=== PATIENT | male | born 1995 | race American Indian/Alaskan Native ===

== ENCOUNTER 2017-03-03 10:17 | Emergency (ER) | payer SELFPAY ==
--- NOTE | 2017-03-03 13:12 | Emergency Department Report ---
ED General Adult HPI - General Chief complaint: Sore Throat Stated complaint: FLU LIKE SYMPTOMS Time Seen by Provider: 03/03/17 12:57 Source: patient Mode of arrival: Ambulatory Limitations: No Limitations - History of Present Illness Initial comments: Patient here reports that he has sore throats complaining of sore throat 2 days. Reports chills. Denies any headache, coughing, shortness of breath. Denies any neck pain or stiffness. Denies any nausea vomiting or abdominal pain. He is also complaining of testicular pain that started going on for 2 months. Denies any injury to area. Denies any swelling he said it hurts when he touches testicles. Denies any penile discharge. Denies any concern for STD as he said he hasn't had sex for a while. Pain is 10 out of 10 to his throat and testicle. He reports taking [id number] pain medication without any relief. Describes the pain as aching. MD Complaint: sore throat and testicular pain -: days(s) ( sore throat), month(s) (testicular pain) Location: mouth (Throat), genitals Severity scale (0 -10): 10 Quality: aching Consistency: intermittent Improves with: none Worsens with: eating, movement Associated Symptoms: fever/chills. denies: confusion, chest pain, cough, diaphoresis, headaches, loss of appetite, malaise, nausea/vomiting, rash, seizure, shortness of breath, syncope, weakness Treatments Prior to Arrival: NSAID - Related Data Previous Rx's Medication Instructions Recorded Last Taken Type Ibuprofen [Motrin] 800 mg PO Q8HR PRN #15 tablet 03/03/17 Unknown Rx Allergies Allergy/AdvReac Type Severity Reaction Status Date / Time No Known Allergies Allergy Unverified 03/03/17 10:21 ED Review of Systems ROS: Stated complaint: FLU LIKE SYMPTOMS Other details as noted in HPI Comment: All other systems reviewed and negative Constitutional: chills. denies: malaise, weakness Eyes: denies: eye pain, eye discharge ENT: throat pain. denies: ear pain, congestion Respiratory: denies: cough, orthopnea, shortness of breath, SOB with exertion, SOB at rest, stridor, wheezing Cardiovascular: denies: chest pain, palpitations, edema, syncope Gastrointestinal: denies: abdominal pain, nausea, vomiting Genitourinary: testicular pain. denies: testicular mass Skin: denies: rash Neurological: denies: headache, weakness, numbness, abnormal gait, vertigo ED Past Medical Hx - Past Medical History Previous Medical History?: No - Surgical History Past Surgical History?: Yes Additional Surgical History: HAND SURGERY - Social History Smoking Status: Current Every Day Smoker Substance Use Type: None - Medications Home Medications: Home Medications Medication Instructions Recorded Confirmed Last Taken Type Ibuprofen [Motrin] 800 mg PO Q8HR PRN #15 tablet 03/03/17 Unknown Rx ED Physical Exam - General Limitations: No Limitations ED Course Vital Signs 03/03/17 03/03/17 10:22 14:35 Temperature 100.9 F H Pulse Rate 102 H Respiratory 18 18 Rate Blood Pressure 121/87 Vital Signs 03/03/17 03/03/17 03/03/17 10:22 14:35 15:21 Temperature 100.9 F H 99.9 F H Pulse Rate 102 H Respiratory 18 18 16 Rate Blood Pressure 121/87 Blood Pressure 111/66 [Left] O2 Sat by Pulse 99 Oximetry Vital Signs 03/03/17 03/03/17 03/03/17 10:22 14:35 15:21 Temperature 100.9 F H 99.9 F H Pulse Rate 102 H Respiratory 18 18 16 Rate Blood Pressure 121/87 Blood Pressure 111/66 [Left] O2 Sat by Pulse 99 Oximetry 03/03/17 15:29 Temperature Pulse Rate 88 Respiratory Rate Blood Pressure Blood Pressure [Left] O2 Sat by Pulse Oximetry - Reevaluation(s) Reevaluation #1: 03/03/17 15:15 Patient given Bicillin long acting 1.2 mu, Motrin 800 mg of sore throat and testicular pain. Deltasone for enlarged tonsils and sore throat. ED Medical Decision Making - Lab Data Lab Results 03/03/17 Range/Units 13:10 Urine Color Yellow (Yellow) Urine Turbidity Clear (Clear) Urine pH 7.0 (5.0-7.0) Ur Specific [place] 1.025 (1.003-1.030) Urine Protein <15 mg/dl (Negative) mg/dL Urine Glucose (UA) Neg (Negative) mg/dL Urine Ketones 80 (Negative) mg/dL Urine Blood Neg (Negative) Urine Nitrite Neg (Negative) Urine Bilirubin Neg (Negative) Urine Urobilinogen 4.0 (<2.0) mg/dL Ur Leukocyte Esterase Neg (Negative) Urine WBC (Auto) < 1.0 (0.0-6.0) /HPF Urine RBC (Auto) < 1.0 (0.0-6.0) /HPF Urine Mucus Few /HPF - Radiology Data Radiology results: report reviewed Ultrasound of testicles reveals normal testicles. - Medical Decision Making ED course: Based on [facility] criteria patient with strep throat. He has exudative pharynx and tonsils, tonsillitis, enlarged tonsils, fever with chills and enlarged cervical lymph nodes. Discussed with patient that he has strep throat and will be treated in emergency room with Bicillin times one dose. I told them that this is a long acting penicillin and referred up to 10-14 days.Patient given Bicillin long acting 1.2 mu, Motrin 800 mg of sore throat and testicular pain. Deltasone for enlarged tonsils and sore throat. I also explained to patient that his ultrasound of his testicles were normal. I discussed with patient that his urine is normal except that he has ketones in his urine which is a sign of dehydration. Patient was orally challenged in emergency room and he drank 4 cups of cranberry juice without any difficulties. Patient was understanding of discharge diagnosis and treatment plan. Discharged home with prescription for Motrin and to follow-up with [facility] in 5 days. Critical care attestation.: If time is entered above; I have spent that time in minutes in the direct care of this critically ill patient, excluding procedure time. ED Disposition Clinical Impression: Enlarged tonsils, Exudative pharyngitis, Testicular pain, Dehydration, Fever in adult Disposition: DISCHARGED TO HOME OR SELFCARE Is pt being admited?: No Does the pt Need Aspirin: No Condition: Stable Instructions: Testicle Pain (ED), Dehydration (ED), Pharyngitis (ED), Strep Throat (ED), Fever in Adults (ED) Additional Instructions: Please increase her fluid intake to 23 L of fluid per day. Take Motrin as prescribed for sore throats. ultrasound of his testicles reveal normal findings. [facility] for [facility] care visit status post strep throat and testicular pain. Gargle with Warm salt water and this will help sore throat Prescriptions: Ibuprofen [Motrin] 800 mg PO Q8HR PRN #15 tablet PRN Reason: Sore Throat Referrals: PRIMARY CARE, [Primary Care Provider] - 3-5 Days Forms: Work/School Release Form(ED), Accompanied Note
[2017-03-03] MEDS ORDERED: DELTASONE PO ONE (13:18)
[2017-03-03] MEDS ORDERED: MOTRIN PO ONE (13:18)
[2017-03-03] MEDS ORDERED: BICILLIN L-A IM ONE (13:18)
[2017-03-03 14:43] LABS: Bilirubin,Urine NEG (Negative); Blood,Urine NEG (Negative); Ketones,Urine 80 mg/dL (Negative); Leukocyte Esterase,Urine NEG (Negative); Mucus,Urine FEW /HPF; Nitrite,Urine NEG (Negative); Protein,Urine <15 mg/dL mg/dL (Negative); RBC,Urine < 1.0 /HPF (0.0-6.0); WBC,Urine < 1.0 /HPF (0.0-6.0)
--- NOTE | 2017-03-03 15:09 | Ultrasound Report ---
FINAL REPORT PROCEDURE: US TESTICULAR DOPPLER COMP TECHNIQUE: Real-time cantrell-scale and color flow Doppler sonography in multiple planes of the scrotum, testicles, and epididymes was performed. Velocity spectral waveform analysis Doppler imaging of the arterial inflow and venous outflow of the testicles was performed with image documentation. CPT 60187 and 52009 HISTORY: PAIN IN TESTICLES FOR 2 MONTHS COMPARISON: No prior studies are available for comparison. FINDINGS: RIGHT TESTICLE: Size: 3.5 cm . Appearance: Normal size and echotexture . Arterial blood flow: Normal spectral waveforms, flow velocities and color flow images.. Venous blood flow: Normal spectral waveforms and color flow images. Right epididymis: Normal size and echotexture . Hydrocele: None . LEFT TESTICLE Size: 3.5 cm . Appearance: Normal size and echotexture . Arterial blood flow: Normal spectral waveforms, flow velocities and color flow images.. Venous blood flow: Normal spectral waveforms and color flow images. Leftepididymis: Normal size and echotexture . Hydrocele: None . IMPRESSION: Normal Examination
[2017-03-03 15:21] VITALS: BP 111/66
== END 2017-03-03 15:35 | disposition home or self-care (01) ==
LOC: ED 10:17
DX: J02.9 Acute pharyngitis, unspecified (principal); J35.1 Hypertrophy of tonsils; N50.819 Testicular pain, unspecified; E86.0 Dehydration; F17.200 Nicotine dependence, unspecified, uncomplicated
CPT/HCPCS: 81001; 87086; 93975; 96372; 99284; J0561; J7512